=== PATIENT | male | born 1990 | race Caucasian/White ===

== ENCOUNTER 2020-06-28 16:59 | Inpatient (IN) | payer MEDICAID ==
[~2020-06-28] VITALS: Ht 175.3 cm; Wt 76.2 kg
[2020-06-28] MEDS ORDERED: ACETAMINOPHEN 325 MG TAB PO ONE (17:45)
[2020-06-28 17:59] LABS: BASO # 0.1 10^3/uL (0.0-0.2); BASO % 0.5 % (0.0-1.0); EOS % 0.1 % (0.0-3.0); HEMATOCRIT 36.8 % (42.0-52.0); HEMOGLOBIN 12.3 g/dl (13.5-17.5); LYMPH % 8.8 % (24.0-44.0); MEAN CORPUSCULAR HEMOGLOBIN 30.1 pg (27.0-33.0); MEAN CORPUSCULAR HGB CONC 33.4 g/dl (32.0-36.5); MEAN CORPUSCULAR VOLUME 90.2 fl (80.0-96.0); MONO # 0.7 10^3/uL (0.0-0.8); MONO % 6.9 % (0.0-5.0); NEUTROPHILS % 83.4 % (36.0-66.0); PLATELET COUNT, AUTOMATED 291 10^3/uL (150-450); RED BLOOD COUNT 4.08 10^6/uL (4.30-6.10); WHITE BLOOD COUNT 10.8 10^3/uL (4.0-10.0)
[2020-06-28] MEDS ORDERED: VANCOMYCIN HCL 1,880 MG in IV FLUID PLACE HOLDER 1 EA IV ONE (18:15)
[2020-06-28 18:18] LABS: INR 1.05; PROTHROMBIN TIME 13.9 SECONDS (11.8-14.0)
[2020-06-28 18:26] LABS: ALBUMIN 3.6 GM/DL (3.2-5.2); ALT/SGPT 20 U/L (12-78); AMYLASE 54 U/L (25-115); BILIRUBIN,DIRECT 0.2 MG/DL (0.0-0.2); BILIRUBIN,TOTAL 0.4 MG/DL (0.2-1.0); BLOOD UREA NITROGEN 11 MG/DL (7-18); C REACTIVE PROTEIN QUANTITATIV 1.36 MG/DL (0.00-0.30); CALCIUM LEVEL 8.5 MG/DL (8.5-10.1); CARBON DIOXIDE LEVEL 25 MEQ/L (21-32); CHLORIDE LEVEL 107 MEQ/L (98-107); CK-MB VALUE MASS < 1.0 NG/ML (<3.6); CPK CREATINE PHOSPHOKINASE 44 U/L (39-308); CREATININE FOR GFR 1.05 MG/DL (0.70-1.30); GLOMERULAR FILTRATION RATE > 60.0 (>60); GLUCOSE, FASTING 106 MG/DL (70-100); MAGNESIUM LEVEL 1.6 MG/DL (1.8-2.4); MB/CK RELATIVE INDEX 2.27 (< OR =4); SODIUM LEVEL 138 MEQ/L (136-145); TOTAL PROTEIN 7.2 GM/DL (6.4-8.2); TROPONIN I < 0.02 NG/ML (< 0.10)
[2020-06-28 18:28] LABS: ABG pH (ARTERIAL) 7.541 UNITS (7.350-7.450)
[2020-06-28 18:29] LABS: ABG BASE EXCESS 4.4 (-2.0-2.0); ABG HCO3 26.6 MEQ/L (22.0-26.0); ABG O2 SATURATION 99.3 % (95.0-99.0); ABG PARTIAL PRESSURE CO2 31.7 mmHg (35.0-45.0); ABG STANDARD HCO3 28.5 MEQ/L (22.0-26.0); ABG TOTAL CO2 27.5 MEQ/L (22.0-29.0)
[2020-06-28] MEDS ORDERED: ISOVUE-370 76% 100ML VIAL As Ordered ONE (18:36)
[2020-06-28] MEDS ORDERED: MAG SULF 1GM/100ML (MAG RUN) 1 GM in IV 1 EA IV ONE (19:00)
[2020-06-28] MEDS: VANCOMYCIN HCL 1,000 MG, VIAL MATE ADAPTER 1 EACH in D5W 250 ML IV SCH ×2 (19:25→21:08)
--- NOTE | 2020-06-28 19:29 | HPEPDOC ---
[facility] Medical History & Physical Date of Admission Jun 28, 2020 Date of Service: Jun 28, 2020 Attending Physician: MERVIN QUEVEDO MD History and Physical TIME OF SERVICE: 8:15pm CHIEF COMPLAINT: chest pain HISTORY OF PRESENT ILLNESS: This 30 yr old M was admitted at a hospital in [facility] for about 2.5 weeks for management of tricuspid valve endocarditis; he received vancomycin and zosyn. Based on their records his course was complicated by hypokalemia and hypomagnesemia. At some point in time during his stay he left AMA and then returned to the hospital for a second time. About 5 days ago he left AMA for a second time. The patient reported that he is homeless and decided to move back to [place] to live with his mother; he has not taken abx for about 5 days. Today he presents w c/o of 6/10 in severity persistent no radiating mid chest pain associated with fevers, chills, weakness, dizziness and dyspnea. He denies noticing raised red spots on his skin or red lesions on his nails. Per Allen Berg has been consulted and Echo has been done. REVIEW OF SYSTEMS: 12 point review of systems negative except as listed in HPI PAST MEDICAL/ SURGICAL HISTORY: Left ankle surgery MRSA Hepatitis C SOCIAL HISTORY: +tobacco / - alcohol / + IVDU /+ homelessness / girlfriend is currently FAMILY HISTORY: 4 vessel CABG grandfather & uncle SLE & Hep C -grandmother ALLERGIES: Please see below. HOME MEDICATIONS: Please see below. PHYSICAL EXAMINATION: Vital Signs Date Time Temp Pulse Resp B/P (MAP) Pulse Ox O2 Delivery O2 Flow Rate FiO2 06/28/20 18:36 16 Automatic Cuff (NIBP) 06/28/20 18:36 Room Air 06/28/20 17:57 101.8 98 99 GENERAL APPEARANCE: well-nourished / well developed /NAD HEENT: mild conjunctival injection / MMM&P CARDIOVASCULAR: RRR/NMRG/ radial pulses intact / no BLE edema LUNGS: CTAB on RA/ no coughing ABDOMEN: flat MUSCULOSKELETAL: NCAT/ IVAN x 4 INTEGUMENT: no splinter hemorrhages / no osler nodules NEUROLOGICAL: CN 2-12 intact /speech not dysarthric PSYCHIATRIC: A&Ox 3/ able to understand and follow all comands EKG: sinus tachycardia w a rate of 96 LABORATORY DATA: 9/6/20 17:37 Immature Granulocyte % (Auto) 0.3, Neutrophils (%) (Auto) 83.4H, Lymphocytes (%) (Auto) 8.8L, Monocytes (%) (Auto) 6.9H, Eosinophils (%) (Auto) 0.1, Basophils (%) (Auto) 0.5, Neutrophils # (Auto) 9.0H, Lymphocytes # (Auto) 1.0L, Monocytes # (Auto) 0.7, Eosinophils # (Auto) 0.0, Basophils # (Auto) 0.1, Nucleated Red Blood Cells % (auto) 0.0, Prothrombin Time 13.9, Prothromb Time International Ratio 1.05, Activated Partial Thromboplast Time 33.0, Anion Gap 6L, Glomerular Filtration Rate > 60.0, Calcium Level 8.5, Magnesium Level 1.6L, Total Bilirubin 0.4, Direct Bilirubin 0.2, Aspartate Amino Transf (AST/SGOT) 19, Alanine Amino transferase (ALT/SGPT) 20, Alkaline Phosphatase 131H, Total Creatine Kinase 44, Creatine Kinase MB < 1.0, Creatine Kinase MB Relative Index 2.27, Troponin I < 0.02, C-Reactive Protein, Quantitative 1.36H, Total Protein 7.2, Albumin 3.6, Albumin/Globulin Ratio 1.0, Amylase Level 54 06/28/20 18:27: Blood Gas Bicarbonate Standard 28.5H, Arterial Blood pH 7.541H, Arterial Blood Partial Pressure CO2 31.7L, Arterial Blood Partial Pressure O2 149.0H, Arterial Blood Total CO2 27.5, Arterial Blood HCO3 26.6H, Arterial Blood Base Excess 4.4H, Arterial Blood Oxygen Saturation 99.3H IMAGING: CTA chest ordered in ER pending. MICROBIOLOGY: 06/28/20 Blood Culture, Received Pending 06/28/20 Blood Culture, Received Pending 06/28/20 Blood Culture, Received Pending ASSESSMENT: is a 30 yr w a hx of Hep C 2/2 IVDU & recently diagnosed tricuspid valve endocarditis who left another hospital [place] prior to completing treatment; he presented w c/o chest pain, fever, chills and dyspnea and will be admitted for sepsis 2/2 tricuspid valve endocarditis. PLAN: 1 Sepsis 2/2 tricuspid valve endocarditis SIRS criteria: Temp >101 / HR >90 / RR> 20 Lactic acid >2 NEW2S Score = 3 points =low risk He received Vanc in the ER Plan: admit to PCU bc he will need more frequent monitoring bc he has sepsis / telemetry / trend repeat lactic acid and exam in 3H / c/w Vanc for MRSA and Ceftriaxone for MSSA / f/u blood cx / Acetaminophen PRN for fever / target MAP at of least 65 / f/u Is and Os with target UOP of at least 0.5 ml/kg/H / f/u FSBS w target serum glucose 140-180 while acutely ill / f/u Echo / f/u w / NPO for Picc line in AM / will ask day time team to consult ID 2 Respiratory Alkalosis Likely 2/2 hyperventilating Plan: monitor vitals / f/u CTA chest to r/o septic emboli 3 Hep C 2/2 IVDU Plan: f/u drug screen / day time team may consider discussing referral to GI for Hep C treatment on an out pt basis 4 Normocytic Anemia Likely sepsis +/- anemia of chronic disease Plan: trend Hg & f/u iron panel 5 Tobacco Abuse Plan: nicotine patch /smoking cessation education 6 Homelessness Plan: PFS consult for assistance w housing and paying for meds DVT Px w Heparin DISPO: possibly home with mother after more than 2 midnights stay Home Medications No Active Prescriptions or Reported Meds Allergies Coded Allergies: No Known Allergies (Unverified , 06/28/20) A-FIB/CHADSVASC A-FIB History Current/History of A-Fib/PAF?: No Current PO Anticoag Therapy: No MERVIN QUEVEDO MD Jun 28, 2020 19:29
[2020-06-28] MEDS ORDERED: MOM 30ML SUSPENSION UDC PO PRN (19:30)
[2020-06-28] MEDS ORDERED: MAALOX 30 ML SUSP *UDC PO PRN (19:30)
[2020-06-28] MEDS ORDERED: NICOTINE 21MG/24HR 1 EA TRANSDERMAL TD SCH (21:00)
[2020-06-28 22:00] VITALS: BP 123/65
[2020-06-28] MEDS: HEPARIN SOD (PORCINE) 5000UNITS/ML 1ML VIAL/SYRINGE SC SCH (22:00)
[2020-06-28] MEDS: ACETAMINOPHEN TAB 650MG DOSE (2X325MG) PO PRN (22:12)
[2020-06-28] MEDS ORDERED: cefTRIAXone SOD 2 GM in D5W MINI-BAG PLUS 50 ML IV ONE (23:00)
[2020-06-29] VITALS: BP 91/54
[2020-06-29] MEDS ORDERED: IBUPROFEN 600MG TAB PO ONE (00:30)
[2020-06-29 01:19] LABS: FERRITIN 162 NG/ML (26-388); IRON (FE) 45 UG/DL (65-175); PERCENT SATURATION 14.2 % (19.7-50.0); TOTAL IRON BINDING CAPACITY 316 UG/DL (250-450)
[2020-06-29] MEDS: NS 1,000 ML IV SCH ×2 (02:19→07:51)
[2020-06-29] MEDS: NICOTINE POLACRILEX 2 MG GUM PO PRN ×2 (02:20→10:09)
[2020-06-29 04:00] VITALS: BP 90/54
[2020-06-29 04:55] LABS: HEMATOCRIT 33.2 % (42.0-52.0); HEMOGLOBIN 10.9 g/dl (13.5-17.5); MEAN CORPUSCULAR HEMOGLOBIN 30.2 pg (27.0-33.0); MEAN CORPUSCULAR HGB CONC 32.8 g/dl (32.0-36.5); PLATELET COUNT, AUTOMATED 231 10^3/uL (150-450); RED BLOOD COUNT 3.61 10^6/uL (4.30-6.10); WHITE BLOOD COUNT 19.4 10^3/uL (4.0-10.0)
[2020-06-29] MEDS ORDERED: VANCOMYCIN HCL 1,000 MG, VIAL MATE ADAPTER 1 EACH in D5W 250 ML IV SCH ×2 (05:00→17:00)
[2020-06-29 05:21] LABS: BILIRUBIN,TOTAL 0.8 MG/DL (0.2-1.0); CALCIUM LEVEL 8.3 MG/DL (8.5-10.1); CREATININE FOR GFR 1.65 MG/DL (0.70-1.30); GLOMERULAR FILTRATION RATE 52.4 (>60); MAGNESIUM LEVEL 1.7 MG/DL (1.8-2.4); POTASSIUM SERUM 3.6 MEQ/L (3.5-5.1); TOTAL PROTEIN 6.6 GM/DL (6.4-8.2)
[2020-06-29] MEDS: HEPARIN SOD (PORCINE) 5000UNITS/ML 1ML VIAL/SYRINGE SC SCH (05:35)
[2020-06-29] MEDS ORDERED: NS 1,000 ML IV ONE ×3 (05:45→09:00)
[2020-06-29 08:00] VITALS: BP 84/56
[2020-06-29] MEDS ORDERED: MAG SULF 1GM/100ML (MAG RUN) 1 GM in IV 1 EA IV ONE (08:00)
[2020-06-29 09:00] VITALS: BP_SYST 86; BP_SYST 95; BP_DIAS 54; BP_DIAS 56
[2020-06-29] MEDS ORDERED: NICOTINE 21MG/24HR 1 EA TRANSDERMAL TD SCH (09:00)
[2020-06-29] MEDS ORDERED: cefTRIAXone SOD 2 GM in D5W MINI-BAG PLUS 50 ML IV SCH (09:00)
[2020-06-29 10:00] VITALS: BP 95/54
[2020-06-29] MEDS: ACETAMINOPHEN TAB 650MG DOSE (2X325MG) PO PRN (10:10)
[2020-06-29 12:00] VITALS: BP 94/52
[2020-06-29] MEDS ORDERED: CALCIUM GLUCONATE 1,000 MG in D5W MINI-BAG PLUS 100 ML IV ONE (12:30)
[2020-06-29] MEDS ORDERED: diphenhydrAMINE 12.5MG/5ML ELIXIR UDC PO ONE (12:30)
[2020-06-29] MEDS ORDERED: MAGNESIUM OXIDE 400 MG TAB (MAG-OX) PO ONE (12:45)
--- NOTE | 2020-06-29 14:09 | DS.PDOC ---
Discharge Summary General Date of Admission Jun 28, 2020 at 19:16 Date of Discharge 06/28/2020 Attending Physician: RAJINDER CHURCHILL MD Discharge Summary PROCEDURES PERFORMED DURING STAY: [None]. ADMITTING DIAGNOSES/DISCHARGE DIAGNOSES: Bacterial Endocarditis COMPLICATIONS/CHIEF COMPLAINT: Shortness of breath HISTORY OF PRESENT ILLNESS: The patient is a 30 year old male who presented to the ED with chief complaint of chest pain, 6/10 in intensity, non radiating ,persistent with no aggravating and relieving factors, since yesterday. He also had fevers, chills and weakness . He had been hospitalized 2.5 weeks ago at a hospital in [place], for the same issue and was being treated by intravenous antibiotics where he left [place] in the middle of his treatment twice. His hospital records indicate he received vancomycin and his condition was complicated by Hypokalemia and hypomagnesemia. HOSPITAL COURSE/DISCHARGE PLAN: Pt was admitted in PCU for better monitoring. For his Endocarditis, he was placed on telemetry, regular vital checks,blood cultures were ordered which came out to be positive for Gram positive cocci in clusters. He was started on I/V Vancomycin and IV Ceftriaxone to cover for MRSA and MSSA. An ECHO was ordered- report pending, Urine drug test was done- report pending ( as per his previous hospital report he had UDS positive for Cannabinoids and opiates). He had some electrolyte imbalances ( low potassium and magnesium). For low potassium, calcium gluconate was given , for low magnesium, Magnesium oxide was given . His Blood Pressure was very low this morning and i/v fluids were given after which his BP came up to around 90/70. Hi Hep C levels came positive as well. He was made to understand the importance of completing a full course of I/V antibiotics and how risky it was to leave the hospital with no treatment. He stated understanding fully in his right mind and decided to leave against medical advice. DISCHARGE MEDICATIONS: Please see below. ALLERGIES: Please see below. PHYSICAL EXAMINATION ON DISCHARGE: VITAL SIGNS: Please see below. GENERAL: Patient looked comfortable. in no acute distress HEENT:AT/NC, EOMI NECK: No LAD, no thyromegaly CARDIOVASCULAR EXAMINATION: Normal heart sounds with no murmurs RESPIRATORY EXAMINATION: Clear to auscultation, no wheezes or crackles ABDOMINAL EXAMINATION: ND/NT, No organomegaly EXTREMITIES: No Roths spots, oslers nodes. SKIN: A diffuse macular itchy rash was present on his left arm and left leg. NEUROLOGICAL EXAMINATION: Good motor strength 5/5. sensations intact. PSYCHIATRIC EXAMINATION: Alert oriented to time, place and person. Normal affect and mood. LABORATORY DATA: Please see below. IMAGING: PROGNOSIS: Poor- without treatment ACTIVITY: [As tolerated]. DIET:as tolerated DISPOSITION: 07 Against Medical Advice. DISCHARGE INSTRUCTIONS: 1. Complete the treatment -Not applicable 2.Follow up with PCP regarding Hep C treatment. ITEMS TO FOLLOWUP ON ON OUTPATIENT: not applicable DISCHARGE CONDITION: [Stable]. TIME SPENT ON DISCHARGE: Greater than 20 minutes. Vital Signs/I&Os Vital Signs Date Time Temp Pulse Resp B/P (MAP) Pulse Ox O2 Delivery O2 Flow Rate FiO2 06/29/20 12:00 98.2 82 18 94/52 (66) 96 Room Air I&O- Last 24 Hours up to 6 AM 06/29/20 06:00 Intake Total 1290 ml Output Total 0 ml Balance 1290 ml Laboratory Data Labs 24H Laboratory Tests 2 06/28/20 17:36: 06/28/20 17:37: Immature Granulocyte % (Auto) 0.3, Neutrophils (%) (Auto) 83.4H, Lymphocytes (%) (Auto) 8.8L, Monocytes (%) (Auto) 6.9H, Eosinophils (%) (Auto) 0.1, Basophils (%) (Auto) 0.5, Neutrophils # (Auto) 9.0H, Lymphocytes # (Auto) 1.0L, Monocytes # (Auto) 0.7, Eosinophils # (Auto) 0.0, Basophils # (Auto) 0.1, Nucleated Red Blood Cells % (auto) 0.0, Prothrombin Time 13.9, Prothromb Time International Ratio 1.05, Activated Partial Thromboplast Time 33.0, Anion Gap 6L, Glomerular Filtration Rate > 60.0, Calcium Level 8.5, Magnesium Level 1.6L, Iron Level 45L, Total Iron Binding Capacity 316, Transferrin % Saturation 14.2L, Ferritin 162, Total Bilirubin 0.4, Direct Bilirubin 0.2, Aspartate Amino Transf (AST/SGOT) 19, Alanine Aminotransferase (ALT/SGPT) 20, Alkaline Phosphatase 131H, Total Creatine Kinase 44, Creatine Kinase MB < 1.0, Creatine Kinase MB Relative Index 2.27, Troponin I < 0.02, C-Reactive Protein, Quantitative 1.36H, Total Protein 7.2, Albumin 3.6, Albumin/Globulin Ratio 1.0, Amylase Level 54 06/28/20 18:27: Blood Gas Bicarbonate Standard 28.5H, Arterial Blood pH 7.541H, Arterial Blood P artial Pressure CO2 31.7L, Arterial Blood Partial Pressure O2 149.0H, Arterial Blood Total CO2 27.5, Arterial Blood HCO3 26.6H, Arterial Blood Base Excess 4.4H, Arterial Blood Oxygen Saturation 99.3H 06/28/20 19:16: Lactic Acid Level 2.5*H 06/28/20 22:04: Methicillin-Resist S.aureus DNA PCR DETECTEDA 06/28/20 23:43: Lactic Acid Followup at 4 Hours 1.4 06/29/20 04:27: Nucleated Red Blood Cells % (auto) 0.0, Anion Gap 6L, Glomerular Filtration Rate 52.4L, Calcium Level 8.3L, Magnesium Level 1.7L, Total Bilirubin 0.8#, A spartate Amino Transf (AST/SGOT) 37, Alanine Aminotransferase (ALT/SGPT) 32, Alkaline Phosphatase 110, Total Protein 6.6, Albumin 3.0L, Albumin/Globulin Ratio 0.8 CBC/BMP Laboratory Tests 06/28/20 17:37 06/29/20 04:27 Microbiology Microbiology 06/28/20 Blood Culture - Preliminary, Resulted 06/28/20 Blood Culture - Preliminary, Resulted 06/28/20 Blood Culture - Preliminary, Resulted Discharge Medications No Active Prescriptions or Reported Meds Allergies Coded Allergies: No Known Allergies (Unverified , 06/28/20) GME ATTESTATION GME ATTESTATION My faculty preceptor for this patient encounter was physically present during the encounter and was fully available. All aspects of the patient interview, examination, medical decision making process, and medical care plan development were reviewed and approved by the faculty preceptor. The faculty preceptor is aware and concurs with the plan as stated in the body of this note and will attest to such by his/her cosignature. ATTENDING NOTE Patient was seen and examined by me personally with the residents and I agree with the above assessment and plan Alfred Rosario MD Jun 29, 2020 14:09 RAJINDER CHURCHILL MD Jul 06, 2020 14:19
--- NOTE | 2020-07-01 14:08 | ECHO ---
DATE OF PROCEDURE: 06/28/2020 Age: 30 PATIENT LOCATION: ED. REFERRING PHYSICIAN: Dr. Gallardo. REASON FOR CONSULT: Shortness of breath. Recent diagnostic of subacute endocarditis. 2D MEASUREMENTS: IVS 1.0 cm LV 4.7 cm LA 3.7 cm Aortic root 3.4 cm Ascending aorta 3.3 cm IVC 2.1 cm DOPPLER MEASUREMENT Maximum tricuspid valve velocity 2.7 mm/s Mitral E 0.8 Mitral A 0.74 with a ratio of 1.1 2D COMMENTS: 1. Normal left ventricle size, wall thickness, and normal global left ventricular systolic function with a hyperdynamic left ventricle. The estimated left ventricular systolic ejection fraction is 65% to 70%. 2. Normal left atrium. The right atrium and the right ventricle appear to be mildly enlarged. The right ventricular free wall seems to be cynthia. 3. The atrial septum appears to be normal without evidence of defect or shunt. 4. Normal aortic root. 5. No pericardial effusion seen. 6. The aortic valve and mitral valve appear to be normal. The pulmonic valve as well appears to be normal. The tricuspid valve was moving well, but on the atrial side of the tricuspid valve, there was a 0.78 echogenic structure that seems to be related to a vegetation. The proximal pulmonary artery branches also appeared to be normal. 7. The inferior vena cava was mildly enlarged. Central venous pressure mildly elevated. DOPPLER: It detects probably moderate tricuspid regurgitation. The calculated pulmonary artery systolic pressure varies between 30 to 40 mmHg. Assessment of the left ventricular diastolic function appeared to be normal. IMPRESSION: 1. Normal global left ventricular systolic function with a hyperdynamic left ventricle. Assessment of the left ventricular diastolic function appeared to be normal. 2. Moderate tricuspid regurgitation with mild pulmonary hypertension and dilated right atrium. 3. There are some features of elevated central venous pressure, the inferior vena cava appeared to be mildly enlarged. 4. Echogenic structure noted on the atrial side of the tricuspid valve is most likely a vegetation. MTDD
--- NOTE | 2020-07-05 08:00 | ECGEPIP ---
[facility] - ED Test Date: 2020-06-28 Pat Name: SAMIRA ARIAS Department: Room: [place] [address] Gender: Male Office Clinician: enriqueta : 1990 Requested By: Samreen Soria Order Number: [id number] Reading MD: Samreen Soria Measurements Intervals [place] Rate: 96 P: 45 IA: 120 QRS: 11 QRSD: 102 T: 31 QT: 335 QTc: 424 Interpretive Statements SINUS RHYTHM NORMAL ECG NO PRIOR TO COMPARE SEE SCANNED DOWNTIME REPORT
--- NOTE | 2020-07-21 14:09 | REP ---
PORTABLE SINGLE VIEW CHEST FINDINGS: Single view of the chest was performed. There is no acute infiltrate or pulmonary edema. The heart and mediastinum are within normal limits. The visualized osseous structures are intact. IMPRESSION: No acute pulmonary disease. Preliminary report provided by virtual radiology at the time of the exam. MTDD
== END 2020-06-29 12:41 | disposition left against medical advice (07) | DRG 720 ==
LOC: M ED 16:59 → EEVIPCON 19:16 → M ED INP 19:16 → M PCU 21:53
PROVIDERS: ADMIT Internal Medicine; ATTEND Internal Medicine
DX: A41.9 Sepsis, unspecified organism (principal); I33.0 Acute and subacute infective endocarditis; E83.42 Hypomagnesemia; E87.6 Hypokalemia; F17.200 Nicotine dependence, unspecified, uncomplicated; Z59.0 Homelessness; D64.9 Anemia, unspecified